=== PATIENT | female | born 1945 | race Caucasian/White ===

== ENCOUNTER 2023-12-31 17:15 | Emergency (ER) | payer MEDICARE, OTHER, SELFPAY ==
--- NOTE | ~2023-12-31 | XR_ITS ---
EXAMINATION: XR CHEST CLINICAL INFORMATION: Weakness. COMPARISON: None available. TECHNIQUE: 2 views of the chest were obtained. FINDINGS: The lungs are clear. The cardiomediastinal silhouette is normal in size. There is no pleural effusion or pneumothorax. Loop recorder overlying the mediastinum. No acute osseous abnormality. Proximal left humerus ORIF across a healed fracture. XR/XR chest 2V IMPRESSION: No acute cardiopulmonary findings.
--- NOTE | ~2023-12-31 | CT_ITS ---
EXAMINATION: CT HEAD WITHOUT CONTRAST CLINICAL INFORMATION: Hypertension. Pain. Anticoagulated. COMPARISON: None TECHNIQUE: Contiguous axial imaging was performed from the skull base to vertex without intravenous administration of contrast. This CT examination was performed using dose optimization techniques as appropriate, variously including the following: *Automated exposure control *Adjustment of mA and/or kV according to patient size (this includes techniques or standardized protocols for targeted exams where dose is matched to indication/reason for exam; i.e. extremities or head) *Use of iterative reconstruction technique DLP: 576 mGy-cm FINDINGS: There is no evidence of an extra-axial collection. There is no evidence of intra or extra-axial hemorrhage. Ventricles and extra-axial CSF spaces are prominent suggestive of generalized atrophy. There is extensive periventricular white matter disease. No mass, mass effect or infarct is seen. Review of bone windows is normal. No skull fracture. Paranasal sinuses, mastoid air cells and middle ears are clear. CT/CT head/brain wo IV con IMPRESSION: No evidence of intra or extra-axial hemorrhage. Embolized atrophy and extensive periventricular white matter disease.
--- NOTE | ~2023-12-31 | US_ITS ---
EXAMINATION: US VENOUS ULTRASOUND WITH DOPPLER LOWER EXTREMITY, LEFT CLINICAL INFORMATION: Pain and swelling COMPARISON: None available. TECHNIQUE: Ultrasound of the deep veins is performed from the hip to the calf with compression sonography and color and pulse Doppler assessment. Spectral analysis with color-flow imaging is performed. FINDINGS: There is normal venous compression and respiratory variation and augmented flow. The visualized common femoral vein, superficial femoral vein, profunda femoral vein, popliteal vein, and the trifurcation region shows no evidence of deep venous thrombosis. There is no significant popliteal fossa cyst. US/US venous duplex LE LT IMPRESSION: No DVT demonstrated in the left lower extremity.
[2023-12-31 19:48] VITALS: BP 226/100; PULSE 68; RESP 16; TEMP 36.7; O2SAT 98; BMI 27.2
--- NOTE | 2023-12-31 19:56 | ECG_ITS ---
Test Reason : HTN Blood Pressure : / mmHG Vent. Rate : 061 BPM Atrial Rate : 061 BPM P-R Int : 170 ms QRS Dur : 076 ms QT Int : 468 ms P-R-T Axes : 055 027 091 degrees QTc Int : 471 ms Normal sinus rhythm with sinus arrhythmia Minimal voltage criteria for LVH, may be normal variant ( Sokolow-[place] ) Nonspecific T wave abnormality Prolonged QT Abnormal ECG No previous ECGs available Referred By: Briseyda Yancey Electronically Signed By:JARRED JACOME MD
--- NOTE | 2023-12-31 19:56 | ED.GENADULT ---
HPI - General Adult General Chief complaint: General Medical Stated complaint: HTN *177/ 92 Time Seen by Provider: 12/31/23 19:58 Source: patient, RN notes reviewed and old records reviewed Mode of arrival: ambulatory Limitations: no limitations History of Present Illness HPI narrative: 78-year-old female with past medical history significant for hypothyroidism, hypertension, atrial fibrillation on Xarelto presents for evaluation of high blood pressure Patient reports that she has had left leg swelling for the last couple of weeks since increasing her thyroid medication She reports that she went to her primary office today and met with the nurse. She was found to have elevated blood pressure as high as ?288 over 130. ? She was told to call ambulance for further evaluation The patient endorses left leg swelling but has no other complaints or concerns. She denies any headache, chest pain blurry vision nausea vomiting, lightheadedness She has no other complaints or concerns at this time The patient takes metoprolol 100 mg extended-release. She states that she has been on at least 10 other blood pressure medications in the past and ?I can only tolerate the metoprolol. ? Related Data Previous Rx's Medication Instructions Recorded metoprolol succinate 200 mg 200 mg PO DAILY #90 tabs 12/31/23 tablet,extended release 24 hr Allergies Allergy/AdvReac Type Severity Reaction Status Date / Time Penicillins Allergy Hives Verified 12/31/23 19:47 Review of Systems Constitutional: Constitutional: Denies body ache(s), Denies chills, Denies fever(s) and Reports headache(s) Eyes: Eyes: Denies blurry vision ENT: Reports headache(s) Cardiovascular: Cardiovascular: Denies chest pain and Denies dyspnea Respiratory: Respiratory: Denies cough and Denies dyspnea Gastrointestinal: Gastrointestinal: Denies abdominal pain, Denies nausea and Denies vomiting Genitourinary: Genitourinary: Denies dysuria Musculoskeletal: Musculoskeletal: Denies back pain Integumentary/Breasts: Skin/Breast: Denies rash Neurologic: Reports headache(s) [facility] Social History Social History Alcohol intake: never Smoked in Last 30 Days: No Use of substances other than those prescribed or required for medical reasons: No Advance Directives: No Advance Directives Information Provided: No Physical Exam ED Vital Signs: Vital Signs - 24 hr 12/31/23 19:48 12/31/23 20:00 12/31/23 20:45 Temperature 98.0 F 98.2 F Pulse Rate 68 66 72 Respiratory Rate 16 14 14 Blood Pressure 226/100 H 217/83 H 207/98 H Pulse Oximetry 98 100 99 Oxygen Delivery Method Room Air Room Air Room Air 12/31/23 21:38 12/31/23 21:38 Temperature Pulse Rate 69 Respiratory Rate 18 Blood Pressure 201/86 H 192/82 H Pulse Oximetry 96 Oxygen Delivery Method Room Air BMI result Body Mass Index 27.2 Const General: healthy appearing, comfortable, no acute distress, alert and awake Nutritional Appearance: well nourished Orientation/consciousness: patient oriented x3 HENMD Head: Yes normocephalic and Yes atraumatic Eyes Eyelids: Yes eyelids normal Conjunctivae: conjunctivae normal Sclerae: sclerae normal Corneas: corneas normal Pupils: Equal, round and reactive pupils present EOM: EOMs intact bilaterally Neck Neck: Yes full ROM Resp Effort & Inspection: normal respiratory effort, able to speak in complete sentences and not labored Cardio Other: 1+ pitting edema to the left lower extremity. No surrounding skin changes Rate: regular rate Rhythm: regular rhythm GI Inspection: No distended Palpation (GI): Soft to palpation, not firm, nontender, no guarding and not rigid Skin General skin exam: elasticity normal Neuro General: patient oriented x3 Cranial nerves: Yes CN's II-XII intact bilaterally, Yes Equal, round and reactive pupils present and Yes Bilaterally intact EOM present Cognition (Neuro): normal cognition Extrem Other: Moving all extremities well without any obvious deformities Course Course Course Narrative: RME performed by Briseyda Yancey PA-C. Patient is a 78 year old assigned female at presenting to the emergency department with elevated blood pressure. Detailed physical exam and review of systems are deferred to the it teacher. Labs and imaging ordered. Charge nurse made aware of patient. Reevaluation(s) Reevaluation #1: Patient's blood pressure improved with metoprolol tartrate, immediate release. Her pulse has been in the 60s to 70s for most of the stay. I discussed treatment going forward. The patient is very concerned about starting a new blood pressure medication as she reports numerous reactions in the past. She is on metoprolol 100 mg currently we will increase 200 mg. 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 She is asymptomatic from the high blood pressure. A cardiac workup will be obtained. Given that she has on a blood thinner with significant hypertension a CT scan of brain was ordered in triage. However, this appears to be asymptomatic hypertension Differential Diagnosis Differential Diagnoses: The differential diagnosis associated with the presentation includes Hypertension Acute headache Intracranial hemorrhage Hypertensive urgency Medication noncompliance Admission/Observation Consideration of admission/observation: Escalation of care including admission/observation considered Consider admission for hypertensive urgency, however the patient's blood pressure improved with oral metoprolol Lab Data [facility] Lab Attestation statement: I reviewed the patient's lab results. No leukocytosis or significant anemia. The patient's platelet count is 148 K. no significant electrolyte abnormalities. Patient's renal function is normal with a creatinine is 0.91. Troponin undetectable 12/31/23 21:01 12/31/23 21:01 Labs: Lab Results 12/31/23 Range/Units 21:01 WBC 5.6 (4.8-10.8) X10*3/uL RBC 4.57 (4.20-5.50) X10*6/uL Hgb 13.6 (12.0-16.0) g/dl Hct 40.1 (37.0-47.0) % MCV 87.7 (80.0-98.0) fL MCH 29.8 (27.0-33.0) pg MCHC 33.9 (31.0-35.0) g/dl RDW 12.7 (11.0-16.0) % Plt Count 148 L (160-400) X10*3/uL MPV 11.7 (9.4-12.3) fL Immature Gran % (Auto) 0.2 (0.0-0.4) % Neut % (Auto) 46.3 (45-73) % Lymph % (Auto) 36.0 (20-40) % [place]ier % (Auto) 17.1 H (2-11) % Eos % (Auto) 0.0 (0-4) % Baso % (Auto) 0.4 (0-2) % Lymph # (Auto) 2.0 (1.2-4.9) X10*3/uL [place]ier # (Auto) 1.0 (0.1-1.2) X10*3/uL Eos # (Auto) 0.0 (0.0-0.4) X10*3/uL Baso # (Auto) 0.0 (0.0-0.2) X10*3/uL Abs Immat Gran (auto) 0.01 (0.00-0.03) X10*3/uL Absolute Neuts (auto) 2.6 (2.0-8.3) x10*3/uL Absolute Nucleated RBC 0.000 (0.0-0.012) X10*3/uL Nucleated RBC % (auto) 0.0 (0.0-0.2) /100WBC Sodium 144 (135-145) mmol/L Potassium 4.5 (3.3-5.1) mmol/L Chloride 102 (96-108) mmol/L Carbon Dioxide 32 H (22-29) mmol/L Anion Gap 15 (12-20) BUN 23 H (9-16) mg/dL Creatinine 0.91 (0.5-1.4) mg/dL Estim Creat Clear Calc 52.3 Estimated GFR 60 Random Glucose 98 (60-115) mg/dL Calcium 10.2 (8.4-10.2) mg/dL Magnesium 1.9 (1.6-2.6) mg/dL Total Bilirubin 0.3 (0.0-1.0) mg/dL AST 22 (5-31) U/L ALT 18 (0-31) U/L Alkaline Phosphatase 74 (39-117) U/L Troponin I High Sens 13.9 (<3.5-17.0) ng/L Total Protein 8.4 H (6.5-8.0) g/dL Albumin 4.3 (3.5-5.0) g/dL Independent Interpretation I performed an independent interpretation of an: EKG, Plain X-Ray (Agree with Radiology interpretation) and CT Scan (No acute intracranial hemorrhage) Interpretation: Normal sinus rhythm with a rate of 61 beats minute. Radiology Impression Discussion of test interpretation with radiology: I have reviewed the radiologist's reading. (No acute intracranial pathology) Radiologist Impression: No acute cardiopulmonary findings on x-ray Discharge Plan Discharge Clinical Impression: Hypertension Patient Disposition: Home, Self-Care Instructions: Chronic Hypertension (ED) Additional Instructions: Your workup in the ER today was reassuring. Given that your blood pressure was significantly elevated I recommend you start taking metoprolol 200 mg daily instead of 100 mg daily Follow-up with your primary doctor, return for new or worsening symptoms Prescriptions: New metoprolol succinate 200 mg tablet extended release 24 hr 200 mg PO DAILY Qty: 90 3RF
[2023-12-31 20:00] VITALS: BP 217/83; PULSE 66; RESP 14; TEMP 36.8; O2SAT 100
[2023-12-31 20:45] VITALS: BP 207/98; PULSE 72; RESP 14; O2SAT 99
[2023-12-31] MEDS: Metoprolol Tartrate 25 MG TABLET PO (20:52)
[2023-12-31 21:05] LABS: MANUAL DIFF FLAG NO
[2023-12-31 21:07] LABS: Basophils Percent Auto 0.4 % (0-2); Hematocrit 40.1 % (37.0-47.0); Hemoglobin 13.6 g/dl (12.0-16.0); Imm Gran Abs Auto 0.01 X10*3/uL (0.00-0.03); Imm Gran Pct Auto 0.2 % (0.0-0.4); Mean Corpuscular HGB Conc 33.9 g/dl (31.0-35.0); Mean Corpuscular Hemoglobin 29.8 pg (27.0-33.0); Mean Corpuscular Volume 87.7 fL (80.0-98.0); Mean Platelet Volume 11.7 fL (9.4-12.3); Monocytes Percent Auto 17.1 % (2-11); Neutrophils Absolute Auto 2.6 x10*3/uL (2.0-8.3); Neutrophils Percent Auto 46.3 % (45-73); Platelet Count 148 X10*3/uL (160-400); Red Blood Count 4.57 X10*6/uL (4.20-5.50); Red Cell Distribution Width 12.7 % (11.0-16.0); White Blood Count 5.6 X10*3/uL (4.8-10.8)
[2023-12-31 21:21] LABS: Alanine Aminotransferase 18 U/L (0-31); Albumin Level 4.3 g/dL (3.5-5.0); Alkaline Phosphatase 74 U/L (39-117); Anion Gap 15 (12-20); Aspartate Amino Transferase 22 U/L (5-31); Bilirubin Total 0.3 mg/dL (0.0-1.0); Blood Urea Nitrogen 23 mg/dL (9-16); Calcium 10.2 mg/dL (8.4-10.2); Carbon Dioxide 32 mmol/L (22-29); Chloride 102 mmol/L (96-108); Creatinine Clr Calc Pharmacy 52.3; Estimated Glomerular Filt Rate 60; Glucose Random 98 mg/dL (60-115); Magnesium 1.9 mg/dL (1.6-2.6); Potassium 4.5 mmol/L (3.3-5.1); Sodium 144 mmol/L (135-145); Total Protein 8.4 g/dL (6.5-8.0)
[2023-12-31 21:28] LABS: Troponin-I High Sensitivity 13.9 ng/L (<3.5-17.0)
[2023-12-31 21:38] VITALS: BP 192/82; BP 201/86; PULSE 69; RESP 18; O2SAT 96
== END 2023-12-31 22:22 | disposition home or self-care (01) ==
PROVIDERS: Physician Assistant Medical; Emergency Provider Emergency Medicine
DX: R60.0 Localized edema (principal); I10 Essential (primary) hypertension; I48.91 Unspecified atrial fibrillation; R53.1 Weakness; R51.9 Headache, unspecified; Z79.01 Long term (current) use of anticoagulants; Z79.899 Other long term (current) drug therapy
CPT/HCPCS: 36415; 70450; 71046; 80053; 83735; 84484; 85025; 93005; 93971; 99284

== ENCOUNTER → 2023-12-31 19:56 | Outpatient (BNV) | payer MEDICARE, OTHER, SELFPAY | PROVIDERS: Emergency Provider Emergency Medicine; Visit Provider Internal Medicine Cardiovascular Disease | DX: I45.81 Long QT syndrome (principal); I10 Essential (primary) hypertension | CPT/HCPCS: 93010 ==